=== PATIENT | female | born 1995 | race Caucasian/White ===

== ENCOUNTER 2021-05-04 17:47 | Emergency (ER) | payer OTHER ==
[~2021-05-04] VITALS: Ht 160 cm; Wt 77.1 kg
[2021-05-04] MEDS ORDERED: FLEXERIL PO (18:42)
[2021-05-04 18:49] VITALS: BP 114/75
== END 2021-05-04 18:49 | disposition home or self-care (01) ==
LOC: M.ERS 17:47
DX: M25.552 Pain in left hip (principal); J45.909 Unspecified asthma, uncomplicated; Z90.49 Acquired absence of other specified parts of digestive tract; V89.2XXA Person injured in unspecified motor-vehicle accident, traffic, initial encounter; Y93.89 Activity, other specified; Y92.89 Other specified places as the place of occurrence of the external cause; Y99.8 Other external cause status